=== PATIENT | female | born 1995 | race Caucasian/White ===

== ENCOUNTER 2022-03-22 20:04 | Inpatient (IN) ==
[~2022-03-22 20:04] MED LIST: *HR* Nalbuphine 10 MG/ML AMPUL IV PRN; Famotidine 20 MG/2 ML VIAL IVP PRN; Metoclopramide 10 MG/2 ML VIAL IVP PRN; Naloxone 0.4 MG/ML INJ IVP PRN; Ondansetron 4 MG/2 ML VIAL IVP PRN
[2022-03-22] MEDS ORDERED: Ringers Solution, Lactated 1,000 ML IVC SCH (20:15)
[2022-03-22 20:18] LABS: Basophils % 0.2 %; Hematocrit 36.8 % (35.3-44.9); Hemoglobin 12.8 g/dL (11.5-15.4); Lymphocytes # 1.9 K/mcL (0.6-4.6); Lymphocytes % 9.7 %; Mean Corpuscular HGB Conc 34.8 g/dL (31.6-35.5); Mean Corpuscular Hemoglobin 31.8 pg (28.0-33.3); Mean Corpuscular Volume 91.5 fL (83.0-100.0); Mean Platelet Volume 11.2 fL (9.4-12.4); Monocytes # 1.2 K/mcL (0.0-1.3); Monocytes % 6.3 %; Platelet Count 176 K/mcL (140-400); Red Blood Count 4.02 M/mcL (3.82-4.97); Red Cell Distribution Width 13.5 % (11.5-14.5); Segmented Neutrophils % 82.8 %; White Blood Count 19.3 K/mcL (4.3-11.1)
[2022-03-22] MEDS ORDERED: *HR* FentaNYL (PF) 100 MCG/2 ML VIAL EP ONE (21:06)
[2022-03-22] MEDS ORDERED: Ropivacaine/PF 0.2% 20 ML VIAL EP ONE (21:06)
[2022-03-22] MEDS ORDERED: EPHEDrine sulfate 50 MG/10 ML VIAL IVP PRN (21:06)
[2022-03-22] MEDS ORDERED: Epidural Premix (fent/bupiv) 110 ML EP SCH (21:15)
[2022-03-22] MEDS ORDERED: Oxytocin 30 UNIT/503 ML BAG IVC SCH (23:00)
[2022-03-22] MEDS ORDERED: Oxytocin 30 UNIT/503 ML BAG IVC ONE (23:06)
[2022-03-23] MEDS ORDERED: Rho Immune Globulin 1,500 UNIT SYRINGE IM PRN ×2 (09:13→11:57)
[2022-03-23] MEDS ORDERED: Benzocaine/Menthol 56 GM AEROSOL SPRAY TP PRN ×2 (09:13→11:57)
[2022-03-23] MEDS ORDERED: OXYTOCIN/RINGERS LACTATE 10 UNIT/166.6 ML BAG IVC ONE ×2 (09:13→11:57)
[2022-03-23] MEDS ORDERED: Ondansetron ODT 4 MG TAB.RAPDIS SL PRN ×2 (09:13→11:57)
[2022-03-23] MEDS ORDERED: Measles/Mumps/Rubella Vacc 0.5 ML VIAL SQ PRN ×2 (09:13→11:57)
[2022-03-23] MEDS ORDERED: Lanolin 7 G OINT...G. TP PRN ×2 (09:13→11:57)
[2022-03-23] MEDS ORDERED: Oxytocin 30 UNIT/503 ML BAG IVC SCH ×2 (09:15→11:57)
[2022-03-23] MEDS ORDERED: Acetaminophen 325 MG TABLET PO SCH (09:15)
[2022-03-23] MEDS ORDERED: Ibuprofen 600 MG TABLET PO SCH (12:13)
[2022-03-23] MEDS: Acetaminophen 325 MG TABLET PO SCH ×2 (14:50→22:34)
[2022-03-23] MEDS: Ibuprofen 600 MG TABLET PO SCH ×2 (14:51→22:33)
[2022-03-23] MEDS ORDERED: Ringers Solution, Lactated 500 ML IVC ONE (15:22)
[2022-03-24] MEDS: Acetaminophen 325 MG TABLET PO SCH (04:16)
[2022-03-24] MEDS: Ibuprofen 600 MG TABLET PO SCH ×2 (04:16→11:20)
[2022-03-24 05:39] LABS: Basophils # 0.1 K/mcL (0.0-0.2); Basophils % 0.5 %; Eosinophils # 0.1 K/mcL (0.0-0.6); Eosinophils % 0.5 %; Immature Granulocytes % 1.1 % (0-4); Lymphocytes # 3.3 K/mcL (0.6-4.6); Lymphocytes % 19.3 %; Mean Corpuscular HGB Conc 34.3 g/dL (31.6-35.5); Mean Corpuscular Hemoglobin 31.9 pg (28.0-33.3); Mean Corpuscular Volume 92.9 fL (83.0-100.0); Mean Platelet Volume 11.2 fL (9.4-12.4); Monocytes # 1.2 K/mcL (0.0-1.3); Monocytes % 7.3 %; Neutrophils # 12.1 K/mcL (1.6-8.9); Platelet Count 134 K/mcL (140-400); Red Blood Count 3.23 M/mcL (3.82-4.97); Red Cell Distribution Width 13.6 % (11.5-14.5); Segmented Neutrophils % 71.3 %
[2022-03-24 05:54] LABS: Hemoglobin 10.3 g/dL (11.5-15.4)
[2022-03-24 07:28] VITALS: BP 112/69; PULSE 81; TEMP 98; O2SAT 97
[2022-03-24] MEDS ORDERED: Prenatal Vit/FA 1 EACH TABLET PO SCH ×2 (09:00)
== END 2022-03-24 12:08 | disposition home or self-care (01) | DRG 806 ==
LOC: 1NENULAB → 1NENUOBS 03-23 11:12
PROVIDERS: ADMIT Obstetrics & Gynecology; ATTEND Obstetrics & Gynecology

== ENCOUNTER 2022-03-31 18:56 | Inpatient (IN) ==
[2022-03-31] MEDS ORDERED: Ampicillin/Sulbactam 3,000 MG in 0.9 % Sodium Chloride Mini Bag 100 ML IVPB ONE (20:03)
[2022-03-31 20:45] LABS: Basophils % 0.3 %; Eosinophils % 0.1 %
[2022-03-31 20:46] LABS: Basophils # 0.1 K/mcL (0.0-0.2); Hematocrit 40.2 % (35.3-44.9); Hemoglobin 13.7 g/dL (11.5-15.4); Immature Granulocytes % 0.8 % (0-4); Lymphocytes # 1.3 K/mcL (0.6-4.6); Lymphocytes % 4.1 %; Mean Corpuscular HGB Conc 34.1 g/dL (31.6-35.5); Mean Corpuscular Hemoglobin 31.4 pg (28.0-33.3); Mean Platelet Volume 9.2 fL (9.4-12.4); Monocytes # 1.5 K/mcL (0.0-1.3); Platelet Count 360 K/mcL (140-400); Red Blood Count 4.37 M/mcL (3.82-4.97); Segmented Neutrophils % 89.7 %
[2022-03-31] MEDS: 0.9 % Sodium Chloride 1,000 ML IVC SCH (20:48)
[2022-03-31 20:50] LABS: Neutrophils # 27.6 K/mcL (1.6-8.9)
[2022-03-31 20:52] LABS: White Blood Count 30.8 K/mcL (4.3-11.1)
[2022-03-31 20:54] LABS: Alanine Aminotransferase 20 Units/L (7-52); Albumin 4.2 g/dL (3.5-5.7); Albumin/Globulin Ratio 1.3 (1.1-2.2); Alkaline Phosphatase 128 Units/L (34-104); Aspartate Amino Transferase 18 Units/L (13-39); BUN/Creatinine Ratio 28 (6-26); Bilirubin,Direct 0.1 mg/dL (0.0-0.2); Bilirubin,Indirect 0.6 mg/dL (0.0-1.0); Bilirubin,Total 0.7 mg/dL (0.3-1.0); Blood Urea Nitrogen 21 mg/dL (6-20); Calcium 9.7 mg/dL (8.6-10.3); Carbon Dioxide 21 mEq/L (23-29); Chloride 103 mEq/L (98-107); Globulin 3.3 g/dL (2.4-3.5); Glucose 101 mg/dL (70-105); Osmolality,Calculated 285 (280-300); Potassium 3.3 mEq/L (3.5-5.1); Sodium 136 mEq/L (136-145); Total Protein 7.5 g/dL (6.4-8.9)
[2022-03-31 20:55] LABS: Bacteria,Urine Few per hpf (None-Few); Bilirubin,Urine Negative (Negative); Blood,Urine Large (Negative); Clarity,Urine Turbid (Clear); Color,Urine Light-Orange (Yellow); Glucose,Urine (UA) Normal (Normal); Ketones,Urine Negative (Negative); Leukocyte Esterase,Urine Large (Negative); Mucus,Urine Few per lpf (None-Few); Nitrite,Urine Negative (Negative); Protein,Urine 50 mg/dL (Neg-Trace); RBC,Urine 50-100 per hpf (0-3); Specific Gravity,Urine 1.009 (1.010-1.025); Squamous Epithelial Cell,Urine Few per hpf (None-Few); Transitional Epi Cells,Urine Few per hpf (None-Few); Urobilinogen,Urine Normal (Normal); WBC,Urine TNTC per hpf (0-3)
[2022-03-31 21:07] LABS: Platelet Estimate Normal (Normal)
[2022-03-31] MEDS ORDERED: Acetaminophen IV 1,000 MG/100 ML BAG IVPB ONE (21:14)
[2022-03-31 21:17] LABS: Influenza A PCR Negative (Negative); Influenza B PCR Negative (Negative); Resp. Syncytial Virus PCR Negative (Negative)
[2022-03-31 21:18] LABS: SARS-CoV-2 by PCR (In House) Negative (Negative)
[2022-03-31] MEDS ORDERED: Naloxone 0.4 MG/ML INJ IVP PRN (21:35)
[2022-03-31] MEDS ORDERED: Acetaminophen 325 MG TABLET PO PRN (21:35)
[2022-03-31] MEDS ORDERED: Melatonin 3 MG TABLET PO PRN (21:35)
[2022-03-31] MEDS ORDERED: Ondansetron 4 MG/2 ML VIAL IVP PRN (21:35)
[2022-03-31 22:51] LABS: Chlamydia Trachomatis DNA Ur NOT DETECTED (Not Detect)
[2022-03-31] MEDS: Ringers Solution, Lactated 1,000 ML IVC SCH (23:08)
[2022-04-01] MEDS: Piperacillin/Tazobactam 3.375 GM in 0.9 % Sodium Chloride Mini Bag 100 ML IVPB SCH ×3 (00:35→16:45)
[2022-04-01 02:54] LABS: Red Cell Distribution Width 13.1 % (11.5-14.5)
[2022-04-01 02:55] LABS: Basophils # 0.1 K/mcL (0.0-0.2); Basophils % 0.2 %; Hemoglobin 11.5 g/dL (11.5-15.4); Immature Granulocytes % 0.7 % (0-4); Lymphocytes # 2.1 K/mcL (0.6-4.6); Lymphocytes % 6.4 %; Mean Corpuscular HGB Conc 33.8 g/dL (31.6-35.5); Mean Corpuscular Hemoglobin 31.4 pg (28.0-33.3); Mean Corpuscular Volume 92.9 fL (83.0-100.0); Mean Platelet Volume 9.5 fL (9.4-12.4); Monocytes % 6.3 %; Neutrophils # 27.7 K/mcL (1.6-8.9); Platelet Count 326 K/mcL (140-400); Red Blood Count 3.66 M/mcL (3.82-4.97); Segmented Neutrophils % 86.4 %
[2022-04-01 03:04] LABS: INR 1.4; Prothrombin Time 15.3 Seconds (9.4-12.1)
[2022-04-01 03:12] LABS: White Blood Count 32.1 K/mcL (4.3-11.1)
[2022-04-01 03:15] LABS: BUN/Creatinine Ratio 23 (6-26); Blood Urea Nitrogen 15 mg/dL (6-20); C-Reactive Protein 66 mg/L (Less than 10); Calcium 8.3 mg/dL (8.6-10.3); Carbon Dioxide 22 mEq/L (23-29); Chloride 108 mEq/L (98-107); Glucose 130 mg/dL (70-105); Magnesium 1.8 mg/dL (1.6-2.6); Osmolality,Calculated 295 (280-300); Phosphorous 3.4 mg/dL (2.7-4.5); Potassium 3.5 mEq/L (3.5-5.1); Sodium 141 mEq/L (136-145)
[2022-04-01] MEDS: *HR* Enoxaparin 40 MG/0.4 ML SYRINGE SQ SCH (05:30)
[2022-04-01] MEDS: Ringers Solution, Lactated 1,000 ML IVC SCH ×2 (14:08→21:41)
[2022-04-02] MEDS: Piperacillin/Tazobactam 3.375 GM in 0.9 % Sodium Chloride Mini Bag 100 ML IVPB SCH ×3 (00:45→14:25)
[2022-04-02 03:27] LABS: Basophils # 0.1 K/mcL (0.0-0.2); Basophils % 0.5 %; Eosinophils # 0.2 K/mcL (0.0-0.6); Eosinophils % 0.9 %; Hematocrit 34.5 % (35.3-44.9); Hemoglobin 11.7 g/dL (11.5-15.4); Immature Granulocytes % 0.8 % (0-4); Lymphocytes # 2.6 K/mcL (0.6-4.6); Mean Corpuscular HGB Conc 33.9 g/dL (31.6-35.5); Mean Corpuscular Volume 94.3 fL (83.0-100.0); Mean Platelet Volume 9.2 fL (9.4-12.4); Monocytes # 1.1 K/mcL (0.0-1.3); Monocytes % 5.3 %; Neutrophils # 17.4 K/mcL (1.6-8.9); Platelet Count 281 K/mcL (140-400); Red Blood Count 3.66 M/mcL (3.82-4.97); Red Cell Distribution Width 13.2 % (11.5-14.5); Segmented Neutrophils % 80.5 %; White Blood Count 21.6 K/mcL (4.3-11.1)
[2022-04-02 03:44] LABS: BUN/Creatinine Ratio 18 (6-26); Blood Urea Nitrogen 12 mg/dL (6-20); Calcium 8.6 mg/dL (8.6-10.3); Carbon Dioxide 22 mEq/L (23-29); Chloride 110 mEq/L (98-107); Glucose 86 mg/dL (70-105); Osmolality,Calculated 289 (280-300); Potassium 3.6 mEq/L (3.5-5.1); Sodium 140 mEq/L (136-145)
[2022-04-02] MEDS: *HR* Enoxaparin 40 MG/0.4 ML SYRINGE SQ SCH (05:54)
[2022-04-02 09:05] LABS: A.calcoaceticus-baumannii cplx Not Detected (Not Detect); Bacteroides fragilis by PCR Not Detected (Not Detect); Candida albicans by PCR Not Detected (Not Detect); Candida auris by PCR Not Detected (Not Detect); Candida glabrata by PCR Not Detected (Not Detect); Candida krusei by PCR Not Detected (Not Detect); Candida parapsilosis by PCR Not Detected (Not Detect); Candida tropicalis by PCR Not Detected (Not Detect); Crypto. neoformans/gattii PCR Not Detected (Not Detect); Enterobacter cloacae Cmplx PCR Not Detected (Not Detect); Enterobacterales by PCR Not Detected (Not Detect); Enterococcus faecalis by PCR Not Detected (Not Detect); Enterococcus faecium by PCR Not Detected (Not Detect); Escherichia coli by PCR Not Detected (Not Detect); Klebs. pneumoniae group by PCR Not Detected (Not Detect); Klebsiella aerogenes by PCR Not Detected (Not Detect); Klebsiella oxytoca by PCR Not Detected (Not Detect); Proteus by PCR Not Detected (Not Detect); Pseudomonas aeruginosa by PCR Not Detected (Not Detect); Salmonella species by PCR Not Detected (Not Detect); Serratia marcescens by PCR Not Detected (Not Detect); Staph epidermidis by PCR Not Detected (Not Detect); Staph lugdunensis by PCR Not Detected (Not Detect); Staphylococcus aureus by PCR Not Detected (Not Detect); Staphylococcus by PCR Not Detected (Not Detect); Stenotrophomonas maltophilia Not Detected (Not Detect); Streptococcus agalactiae(B)PCR Not Detected (Not Detect); Streptococcus by PCR Not Detected (Not Detect); Streptococcus pneumoniae PCR Not Detected (Not Detect); Streptococcus pyogenes (A) PCR Not Detected (Not Detect)
[2022-04-02] MEDS: Vancomycin 1,500 MG/265 ML IV.SOLN IVPB SCH ×2 (10:17→22:11)
[2022-04-02] MEDS ORDERED: Ibuprofen 600 MG TABLET PO PRN (12:36)
[2022-04-02] MEDS: 0.9 % Sodium Chloride 1,000 ML IVC SCH ×2 (12:59→22:12)
[2022-04-03] MEDS: Piperacillin/Tazobactam 3.375 GM in 0.9 % Sodium Chloride Mini Bag 100 ML IVPB SCH ×4 (00:14→23:51)
[2022-04-03 01:03] LABS: Basophils # 0.1 K/mcL (0.0-0.2); Basophils % 0.6 %; Eosinophils # 0.3 K/mcL (0.0-0.6); Hematocrit 35.1 % (35.3-44.9); Hemoglobin 11.7 g/dL (11.5-15.4); Immature Granulocytes % 1.2 % (0-4); Lymphocytes # 2.5 K/mcL (0.6-4.6); Lymphocytes % 14.4 %; Mean Corpuscular HGB Conc 33.3 g/dL (31.6-35.5); Mean Corpuscular Hemoglobin 31.7 pg (28.0-33.3); Mean Corpuscular Volume 95.1 fL (83.0-100.0); Monocytes # 0.8 K/mcL (0.0-1.3); Monocytes % 4.8 %; Neutrophils # 13.2 K/mcL (1.6-8.9); Platelet Count 290 K/mcL (140-400); Red Blood Count 3.69 M/mcL (3.82-4.97); Red Cell Distribution Width 13.1 % (11.5-14.5); White Blood Count 17.1 K/mcL (4.3-11.1)
[2022-04-03 01:22] LABS: BUN/Creatinine Ratio 14 (6-26); Blood Urea Nitrogen 8 mg/dL (6-20); Calcium 8.9 mg/dL (8.6-10.3); Carbon Dioxide 24 mEq/L (23-29); Chloride 112 mEq/L (98-107); Glucose 96 mg/dL (70-105); Osmolality,Calculated 292 (280-300); Potassium 3.6 mEq/L (3.5-5.1); Sodium 142 mEq/L (136-145)
[2022-04-03] MEDS: *HR* Enoxaparin 40 MG/0.4 ML SYRINGE SQ SCH (06:23)
[2022-04-03] MEDS: 0.9 % Sodium Chloride 1,000 ML IVC SCH ×3 (07:32→18:05)
[2022-04-03] MEDS: Vancomycin 1,500 MG/265 ML IV.SOLN IVPB SCH ×2 (09:42→22:39)
[2022-04-03] MEDS: Prenatal Vit/FA 1 EACH TABLET PO SCH (09:42)
[2022-04-03] MEDS: Ringers Solution, Lactated 1,000 ML IVC SCH ×2 (11:22→11:51)
[2022-04-03] MEDS: Vancomycin 1,250 MG/262.5 ML IV.SOLN IVPB SCH (22:30)
[2022-04-04] MEDS: 0.9 % Sodium Chloride 1,000 ML IVC SCH (04:05)
[2022-04-04] MEDS: Vancomycin 1,250 MG/262.5 ML IV.SOLN IVPB SCH (05:07)
[2022-04-04] MEDS: *HR* Enoxaparin 40 MG/0.4 ML SYRINGE SQ SCH (05:08)
[2022-04-04 05:38] LABS: Basophils # 0.1 K/mcL (0.0-0.2); Eosinophils # 0.4 K/mcL (0.0-0.6); Eosinophils % 3.1 %; Hematocrit 35.1 % (35.3-44.9); Hemoglobin 11.8 g/dL (11.5-15.4); Immature Granulocytes % 1.5 % (0-4); Lymphocytes # 2.4 K/mcL (0.6-4.6); Mean Corpuscular HGB Conc 33.6 g/dL (31.6-35.5); Mean Corpuscular Hemoglobin 31.4 pg (28.0-33.3); Mean Corpuscular Volume 93.4 fL (83.0-100.0); Mean Platelet Volume 9.4 fL (9.4-12.4); Monocytes # 0.7 K/mcL (0.0-1.3); Monocytes % 5.2 %; Neutrophils # 9.3 K/mcL (1.6-8.9); Platelet Count 278 K/mcL (140-400); Red Blood Count 3.76 M/mcL (3.82-4.97); Segmented Neutrophils % 71.2 %; White Blood Count 13.1 K/mcL (4.3-11.1)
[2022-04-04 05:58] LABS: BUN/Creatinine Ratio 12 (6-26); Blood Urea Nitrogen 7 mg/dL (6-20); Calcium 10.3 mg/dL (8.6-10.3); Carbon Dioxide 24 mEq/L (23-29); Chloride 111 mEq/L (98-107); Glucose 85 mg/dL (70-105); Osmolality,Calculated 287 (280-300); Potassium 3.8 mEq/L (3.5-5.1); Sodium 140 mEq/L (136-145)
[2022-04-04 06:50] VITALS: BP 118/80; PULSE 66; TEMP 99.1; O2SAT 97
[2022-04-04] MEDS: Prenatal Vit/FA 1 EACH TABLET PO SCH (07:44)
[2022-04-04] MEDS: Piperacillin/Tazobactam 3.375 GM in 0.9 % Sodium Chloride Mini Bag 100 ML IVPB SCH (07:45)
== END 2022-04-04 10:02 | disposition home or self-care (01) | DRG 776 ==
LOC: 3ANU 18:56 → EMEROOARM 18:56 → SUATTDRO 21:40 → 3ANU 22:34
PROVIDERS: ADMIT Internal Medicine; ATTEND Family Medicine